=== PATIENT | female | born 1985 | race American Indian/Alaskan Native ===

== ENCOUNTER 2022-02-28 09:15 | Emergency (ER) | payer SELFPAY ==
[2022-02-28] MEDS ORDERED: ACETAMINOPHEN W/CODEINE 300-30 MG TAB PO ONE (10:05)
[2022-02-28] MEDS ORDERED: CYCLOBENZAPRINE 10 MG TAB PO ONE (10:05)
[2022-02-28] MEDS ORDERED: KETOROLAC 10 MG TAB PO ONE (10:05)
--- NOTE | 2022-02-28 11:04 | XRay Report ---
RIGHT RIBS 5 VIEWS INDICATION / CLINICAL INFORMATION: fall, right rib pain. COMPARISON: None available. FINDINGS: RIBS: Acute minimally displaced posterolateral right ninth rib fracture. Incidental bilateral cervica l ribs. LUNGS: Streaky opacities right lung base, likely atelectasis No pneumothorax. ADDITIONAL FINDINGS: None. IMPRESSION: 1. Acute minimally displaced posterolateral right ninth rib fracture. Signer Name: Charlie Bhardwaj MD Signed: 02/28/2022 11:00 AM Workstation Name: [id number]
--- NOTE | 2022-02-28 11:10 | Emergency Department Report ---
ED Fall HPI - General Chief Complaint: Pain General Stated Complaint: FALL,RT SIDE PAIN Time Seen by Provider: 02/28/22 09:55 Source: patient, EMS Mode of arrival: Stretcher - History of Present Illness Initial Comments: 36-year-old black female with no past medical history presents to the emergency department for evaluation of right rib pain. She states that she tripped in the bathroom while attempting to get her daughter dressed this morning and hit her right rib area on the tub. She denies loss of consciousness. Complaint: fall -: Sudden, hour(s) Fall From: standing When Fall Occurred: 1-3 hours [employer] Fall Witnessed: no Place Fall Occurred: home Loss of Consciousness: none Symptoms Prior to Fall: none Location: chest (Right rib area) Severity: severe Severity scale (0 -10): 10 Quality: aching Associated Symptoms: denies - Related Data Previous Rx's Medication Instructions Recorded Last Taken Type Cyclobenzaprine [Flexeril] 10 mg PO TID PRN #30 tab 02/28/22 Unknown Rx Ketorolac [Toradol] 10 mg PO Q6H PRN #15 tab 02/28/22 Unknown Rx oxyCODONE /ACETAMINOPHEN [Percocet 1 tab PO Q6HR PRN #15 tablet 02/28/22 Unknown Rx 5/325] Allergies Allergy/AdvReac Type Severity Reaction Status Date / Time No Known Allergies Allergy Verified 02/28/22 09:22 ED Review of Systems ROS: Stated complaint: FALL,RT SIDE PAIN Other details as noted in HPI Comment: All other systems reviewed and negative Constitutional: denies: chills, fever Respiratory: denies: cough, orthopnea, shortness of breath, SOB with exertion, SOB at rest, stridor, wheezing Cardiovascular: denies: chest pain, palpitations Gastrointestinal: denies: abdominal pain, nausea, vomiting Musculoskeletal: back pain Neurological: denies: headache, weakness ED Past Medical Hx - Medications Home Medications: Home Medications Medication Instructions Recorded Confirmed Last Taken Type Cyclobenzaprine [Flexeril] 10 mg PO TID PRN #30 tab 02/28/22 Unknown Rx Ketorolac [Toradol] 10 mg PO Q6H PRN #15 tab 02/28/22 Unknown Rx oxyCODONE /ACETAMINOPHEN [Percocet 1 tab PO Q6HR PRN #15 tablet 02/28/22 Unknown Rx 5/325] ED Physical Exam - General Limitations: No Limitations General appearance: alert, in no apparent distress - Head Head exam: Present: atraumatic, normocephalic - Eye Eye exam: Present: normal appearance. Absent: conjunctival injection - Neck Neck exam: Present: normal inspection. Absent: tenderness, lymphadenopathy - Respiratory Respiratory exam: Present: normal lung sounds bilaterally, chest wall tenderness (Right rib area). Absent: respiratory distress, wheezes, rales, rhonchi, stridor, accessory muscle use, decreased breath sounds - Cardiovascular Cardiovascular Exam: Present: regular rate, normal heart sounds - Expanded Cardiovascular Exam Expanded 1 - Tenderness - GI/Abdominal GI/Abdominal exam: Present: soft, normal bowel sounds. Absent: distended, tenderness - Extremities Exam Extremities exam: Present: normal inspection, normal capillary refill - Back Exam Back exam: Present: normal inspection. Absent: CVA tenderness (R), CVA tenderness (L) - Neurological Exam Neurological exam: Present: alert, oriented X3, CN II-XII intact, normal gait - Psychiatric Psychiatric exam: Present: normal affect, normal mood - Skin Skin exam: Present: warm, dry, intact, normal color ED Course Vital Signs 02/28/22 02/28/22 09:21 11:26 Temperature 98.2 F Pulse Rate 73 74 Respiratory 14 18 Rate Blood Pressure 115/79 120/78 [Left] O2 Sat by Pulse 99 98 Oximetry ED Medical Decision Making - Radiology Data Radiology results: report reviewed, image reviewed Right rib x-ray with PA chest: FINDINGS: RIBS: Acute minimally displaced posterolateral right ninth rib fracture. Incidental bilateral cervical ribs. LUNGS: Streaky opacities right lung base, likely atelectasis No pneumothorax. ADDITIONAL FINDINGS: None. IMPRESSION: 1. Acute minimally displaced posterolateral right ninth rib fracture. - Medical Decision Making 36-year-old black female with no past medical history presents to the emergency department for evaluation of right rib pain. She states that she tripped in the bathroom while attempting to get her daughter dressed this morning and hit her right rib area on the tub. She denies loss of consciousness X-ray positive for right rib fracture #9. No pneumothorax noted. Patient be discharged home with Toradol, Flexeril, and Percocet to take as needed for pain. She is advised to follow-up with her primary care provider if no improvement or worsening symptoms. She is advised to return to the emergency department if she develops increasing shortness of breath. She verbalizes understanding of and agreement with plan of care. Critical care attestation.: If time is entered above; I have spent that time in minutes in the direct care of this critically ill patient, excluding procedure time. ED Disposition Clinical Impression: Fall Qualifiers: Encounter type: initial encounter Qualified Code(s): W19.XXXA - Unspecified fall, initial encounter Rib fracture Qualifiers: Encounter type: initial encounter Rib fracture type: single rib Fracture type: closed Laterality: right Qualified Code(s): S22.31XA - Fracture of one rib, right side, initial encounter for closed fracture Disposition: 01 HOME / SELF CARE / HOMELESS Is pt being admited?: No Does the pt Need Aspirin: No Condition: Stable Instructions: Rib Fracture, [id number] Additional Instructions: Take medications as prescribed. Follow-up with your primary care provider for further evaluation and management. Return to the emergency department as needed. Prescriptions: Cyclobenzaprine [Flexeril] 10 mg PO TID PRN #30 tab PRN Reason: Muscle Spasm oxyCODONE /ACETAMINOPHEN [Percocet 5/325] 1 tab PO Q6HR PRN #15 tablet PRN Reason: Pain Ketorolac [Toradol] 10 mg PO Q6H PRN #15 tab PRN Reason: Pain Referrals: JABARI HINES MD [Primary Care Provider] - 3-5 Days Forms: Work/School Release Form(ED) Time of Disposition: 11:10
[2022-02-28 11:42] VITALS: BP 120/78
== END 2022-02-28 11:45 | disposition home or self-care (01) ==
LOC: EDBD → ED 09:15
DX: S22.31XA Fracture of one rib, right side, initial encounter for closed fracture (principal); Z79.899 Other long term (current) drug therapy; W18.39XA Other fall on same level, initial encounter; Y93.89 Activity, other specified; Y92.89 Other specified places as the place of occurrence of the external cause; Y99.8 Other external cause status
CPT/HCPCS: 99283